=== PATIENT | male | born 1975 | race Caucasian/White ===

== ENCOUNTER 2021-11-19 15:53 | Emergency (ER) | payer OTHER, SELFPAY ==
[2021-11-19 16:07] VITALS: BP 140/85; PULSE 74; RESP 18; TEMP 36.5; O2SAT 98
[2021-11-19 16:10] VITALS: BP 140/85; PULSE 74; RESP 18; TEMP 36.5; O2SAT 98
--- NOTE | 2021-11-19 16:31 | ED.URI ---
HPI - URI/Sore Throat General Chief Complaint: Upper Respiratory Infection Stated Complaint: Ear/Nose/Throat Source: patient and RN notes reviewed Mode of arrival: ambulatory History of Present Illness HPI Narrative: This is a 46-year-old male who presented to urgent care with complaints of left-sided ear pain jaw pain and throat pain. According to patient he developed pain to his left jaw ear 3 days ago. The patient denies SOB, CP, palpitation, extremity numbness, lightheadedness, dizziness, constipation, diarrhea, chills, or fever. Related Data Allergies Allergy/AdvReac Type Severity Reaction Status Date / Time codeine Allergy Unknown Other Unverified 11/19/21 16:10 Review of Systems Review of Systems: A 14 organ system Review of Systems was performed and pertinent positives included in the HPI, otherwise remaining ROS is negative. [facility] Family History Family History Mother Patient's mother is in good health Father Patient's father is in good health Social History Social History Smoking status: Never smoker Alcohol intake: current Exam Narrative: GENERAL: This is a well-nourished, well-developed patient, in no apparent distress. HEAD: normocephalic, atraumatic. EYES: PERRL. Sclera clear/white. Vision is grossly intact. EARS: External ears normal, auditory canals clear and without drainage, TMs normal with perforation and erythematous. Hearing grossly intact. NOSE: External nose normal with no obvious nasal discharge, nares without redness, no rhinorrhea. THROAT: Mucous membranes moist, posterior pharynx edema with erythema. Bilateral enlarged tonsils NECK: Neck supple, non-tender without lymphadenopathy, masses or thyromegaly. CARDIOVASCULAR: Regular rate and rhythm without murmurs, gallops, or rubs. RESPIRATORY: Clear to auscultation. Breath sounds equal bilaterally. No wheezes, rales, or rhonchi. GASTROINTESTINAL: Abdomen soft, non-tender, nondistended. Bowel sounds are active. No hepato-splenomegaly, or palpable masses. No guarding. SKIN: warm, intact with no suspicious lesions or rash, good texture and turgor. NEURO: awake, alert, and oriented to person, place and time. There were no obvious focal neurologic abnormalities. Steady gait EXTREMITIES: Normal range of motion. No edema. No calf tenderness. Negative Homans sign bilaterally. BACK: Nontender without deformity or crepitance. No flank tenderness. Course Course Emergency Course: Patient will be treated for otitis media this is a wellness pharyngitis with Augmentin 875 mg twice daily x 10 days Level of Care: Express Care Visit Vital Signs Vital signs: Vital Signs Temperature 97.7 F 11/19/21 16:07 Pulse Rate 74 11/19/21 16:07 Respiratory Rate 18 11/19/21 16:07 Blood Pressure 140/85 11/19/21 16:07 Pulse Oximetry 98 11/19/21 16:07 Temperature 97.7 F 11/19/21 16:10 Pulse Rate 74 11/19/21 16:10 Respiratory Rate 18 11/19/21 16:10 Blood Pressure 140/85 11/19/21 16:10 Pulse Oximetry 98 11/19/21 16:10 Procedures Ear Wax Removal Left Ear: Ear Wax Removal Date: 11/19/21 Ear Wax Removal Time: 16:35 Cerumenolytic Used: other (Have hydrogen peroxide and water) Results: Re-examined: cerumen removed completely TM Examination: TM(s) perforation Ear Canal Exam: bleeding Noted Patient Tolerated Procedure: well Complications: no problems Technique: ear canal irrigated MDM - URI/Sore Throat Differential Diagnosis Differential diagnosis: Likely upper respiratory infection, otitis media, sinusitis and pharyngitis Discharge Plan Discharge Clinical Impression: Pharyngitis Qualifiers: Pharyngitis/tonsillitis etiology: streptococcus Qualified Code(s): J02.0 - Streptococcal pharyngitis Otitis media Qualifiers: Otitis media type: other nonsuppurative Chroni
== END 2021-11-19 16:40 | disposition home or self-care (01) ==
PROVIDERS: Emergency Provider Nurse Practitioner
DX: J02.0 Streptococcal pharyngitis (principal); H65.192 Other acute nonsuppurative otitis media, left ear; H61.22 Impacted cerumen, left ear
CPT/HCPCS: 69209; 99213; G0463

== ENCOUNTER 2022-08-27 19:14 | Emergency (ER) | payer OTHER, SELFPAY ==
--- NOTE | 2022-08-27 19:19 | ED.URI ---
HPI - URI/Sore Throat General Chief Complaint: Upper Respiratory Infection Stated Complaint: sore throat, cough Time Seen by Provider: 08/27/22 19:22 Source: patient and RN notes reviewed Mode of arrival: ambulatory Limitations: no limitations History of Present Illness HPI Narrative: 47-year-old male presents with concern for cough, sore throat, fatigue. He denies fever, body aches, chills, sweats, nasal congestion, rhinorrhea, shortness of breath. 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 He denies nausea, vomiting, diarrhea MD elicited complaint: cough and sore throat Related Data Allergies Allergy/AdvReac Type Severity Reaction Status Date / Time codeine Allergy Unknown Other Verified 11/25/21 15:03 Review of Systems Review of Systems: CONSTITUTIONAL: Denies malaise, reports fatigue. Chills, sweats, or fever. EYES: Denies visual changes, redness, or discharge. ENT: Denies rhinorrhea, congestion, sinus pain, otalgia. Reports sore throat. CARDIOVASCULAR: Denies chest pain, palpitations, or edema. RESPIRATORY: Reports cough. Denies dyspnea. GASTROINTESTINAL: Denies abdominal pain, nausea, vomiting, diarrhea SKIN: Denies rash or itching. MUSCULOSKELETAL: Reports myalgia. NEUROLOGIC: Denies headache. All systems reviewed & are unremarkable except as noted in HPI and below PMFSH Family History Family History (Reviewed 11/25/21 @ 15:04 by Tamra Contreras [facility]) Mother Patient's mother is in good health Father Patient's father is in good health Social History Social History (Reviewed 11/25/21 @ 15:04 by Tamra Contreras [facility]) Smoking status: Never smoker Alcohol intake: current Comments At time of signature, agree with nursing past medical, surgical, social and family history. There is no relevant family history pertinent to the presenting complaint Exam Narrative: GENERAL: Well-appearing, well-nourished, and in no acute distress. HEAD: Normocephalic EYES: PERRLA, conjunctivae clear ENT: Nares clear. Mucous membranes moist. TM pearly sauer with dull light reflex bilaterally; no tragal tenderness. Oropharynx male erythematous without lesions. Tonsils not enlarged and without exudate, no drooling, no hoarseness, no trismus, uvula midline. NECK: Supple. No lymphadenopathy CHEST: Clear to auscultation, breath sounds equal. No wheezing, rhonchi, rales, or stridor. No respiratory distress, speaks in full sentences. HEART: Regular rate and rhythm. No murmur heard. SKIN: Warm, dry, no rash. NEURO: Alert and oriented x3. PSYCH: Normal mood and affect Course Course Emergency Course: Patient is aware of diagnosis, understands and agrees to treatment plan. Anticipatory guidance given. Patient agrees to follow-up as directed and is aware of reasons to seek care at the emergency department. Portions of this record may have been created with voice recognition software Level of Care: Express Care Visit Vital Signs Vital signs: Reviewed. MDM - URI/Sore Throat MDM Narrative Medical decision making narrative: Differential diagnosis considered: Amaro virus, strep pharyngitis, allergic rhinitis, upper respiratory tract infection, sinusitis, rhinosinusitis, nasopharyngitis. viral pharyngitis, otitis media, otitis externa, pneumonia, bronchitis, viral cough syndrome, viral syndrome, and influenza. Exam findings show no acute concerns or changes; patient is non-toxic appearing and is in no distress. Patient is appropriate for outpatient treatment and follow-up. Lab Data Attestation: I reviewed the patient's lab results. Critical Care Time Critical Care Time Critical Care Time: No Discharge Plan Discharge Clinical Impression: Pharyngitis Patient Disposition: Home, Self-Care Condition: Stable Instructions: Pharyngitis (ED) Additional Instructions: Your rapid strep swab was negative today at [facility]. A throat culture will be sent to the laboratory for further testing. If the test is positive, you will r
[2022-08-27 19:25] VITALS: BP 136/90; PULSE 73; RESP 16; TEMP 36.9; O2SAT 99
== END 2022-08-27 19:39 | disposition home or self-care (01) ==
PROVIDERS: Emergency Provider Nurse Practitioner; PCP Internal Medicine
DX: J02.9 Acute pharyngitis, unspecified (principal)
CPT/HCPCS: 87081; 87880; 99213; G0463

== ENCOUNTER 2023-03-14 12:52 | Emergency (ER) | payer OTHER, SELFPAY ==
--- NOTE | ~2023-03-14 | CT_ITS ---
EXAMINATION: CT abdomen pelvis w con DATE: 03/14/2023 15:18 INDICATION: Right lower quadrant pain TECHNIQUE: Computed tomography (CT) of the abdomen and pelvis was performed with 100 cc Omnipaque 350 intravenous contrast. The dose-length product was 442.61 mGy-cm. Automated exposure control and iter ative reconstruction technique were employed. COMPARISON: None. FINDINGS: Lung bases are unremarkable. Heart size normal. No significant pleural or pericardial effus ion. Fatty infiltration of the liver. The spleen contains calcified granulomas. The pancreas, adrenal glands and kidneys are unremarkable. The appendix is thickened measuring 8 mm, although there is no significant surrounding inflammatory change. Small fat-containing umbilical hernia. Bladder wall is m ildly thickened. Nonobstructive bowel gas pattern. No abnormal pelvic masses or fluid collections. No significant vascular abnormality. No lymphadenopathy. No acute osseous abnormality. IMPRESSION: 1. Mildly thickened appendix without significant surrounding inflammatory change, indeterminate for a ppendicitis. 2: Bladder wall thickening, nonspecific. Cannot exclude cystitis. Clinically correlate. Reviewed, dictated and finalized at location B. IMPRESSION: 1. Mildly thickened appendix without significant surrounding inflammatory beck e, indeterminate for appendicitis. 2: Bladder wall thickening, nonspecific. Cannot exclude cystitis. Clinically harley burris.
[2023-03-14 13:09] VITALS: BP 126/87; PULSE 66; RESP 20; TEMP 36.4; O2SAT 100
[2023-03-14 13:22] LABS: Basophils Absolute Auto 0.1 K/mm3 (0.0-0.1); Basophils Percent Auto 1.6 % (0.2-1.2); Eosinophils Absolute Auto 0.1 K/mm3 (0-0.3); Eosinophils Percent Auto 1.2 % (0-4.4); Hematocrit 43.3 % (42.0-52.0); Hemoglobin 14.9 g/dL (14.0-18.0); Immature Granulocyte Absolute 0.01 K/mm3 (0.00-0.031); Immature Granulocyte Percent A 0.2 % (0-0.5); Lymphocytes Absolute Auto 1.78 K/mm3 (0.9-3.2); Lymphocytes Percent Auto 27.6 % (18.3-44.2); Mean Corpuscular HGB Conc 34.4 g/dl (32-36); Mean Corpuscular Hemoglobin 30.2 pg (26-34); Mean Corpuscular Volume 87.8 fl (80-100); Mean Platelet Volume 8.9 fl (7.4-10.4); Monocytes Absolute Auto 0.4 K/mm3 (0.1-0.6); Monocytes Percent Auto 6.2 % (2.6-8.5); Neutrophils Absolute Auto 4.1 K/mm3 (1.3-6.7); Neutrophils Percent Auto 63.2 % (45.5-73.1); Platelet Count Result 367 k/mm3 (150-375); Red Blood Count 4.93 M/mm3 (4.6-6.20); Red Cell Distribution Width 12.1 % (11.5-14.5); White Blood Count 6.4 K/mm3 (4.5-10.0)
[2023-03-14 13:30] LABS: Alanine Aminotransferase 57 U/L (6-50); Albumin Level 4.8 g/dL (3.5-5.1); Alkaline Phosphatase 76 U/L (38-126); Anion Gap 8 mmol/L (8-16); Aspartate Amino Transferase 43 U/L (17-59); Bilirubin,Total 0.9 mg/dL (0.2-1.3); Blood Urea Nitrogen 12 mg/dL (9-20); Calcium 9.5 mg/dL (8.4-10.2); Carbon Dioxide 28 mmol/L (22-30); Chloride 100 mmol/L (98-107); Estimated CRCL calculation 122 ml/min; Estimated Glomerular Filt Rate > 60; Glucose 130 mg/dL (65-110); Lipase 99 U/L (23-300); Sodium 136 mmol/L (137-145)
--- NOTE | 2023-03-14 14:00 | ED.ABDPAIN ---
HPI - Abdominal Pain General Chief Complaint: Abdominal Pain Stated Complaint: RLQ pain Time Seen by Provider: 03/14/23 13:32 History of Present Illness HPI narrative: Patient is a 47-year-old male who presents ER with right lower quadrant/mid abdominal pain. Began earlier this morning around 4:30 AM. Has been constant and waxes and wanes in intensity. No radiation. No urinary frequency urgency or dysuria. He feels slightly bloated but not constipated. No belching. No history of previous abdominal surgery. No pain with hitting speed bumps Related Data Allergies Allergy/AdvReac Type Severity Reaction Status Date / Time codeine Allergy Unknown Other Verified 03/14/23 13:31 Review of Systems Review of Systems: All systems reviewed & are unremarkable except as noted in HPI and below Constitutional: Constitutional: Denies chills, Denies fatigue and Denies fever(s) Gastrointestinal: Gastrointestinal: Reports abdominal pain, Reports bloating, Denies constipation, Denies diarrhea, Denies nausea and Denies vomiting Genitourinary: Genitourinary: Denies dysuria, Denies testicular pain and Denies urinary frequency PMFSH Past Medical History Medical History (Updated 03/14/23 @ 16:24 by Bogdan Quick MD) Healthy adult male Surgical History Surgical History (Updated 03/14/23 @ 14:01 by Bogdan Quick MD) No history of previous surgery Family History Family History Mother Patient's mother is in good health Father Patient's father is in good health Social History Social History Smoking status: Never smoker Alcohol intake: current Exam Narrative: GENERAL: Well-appearing, well-nourished, and in no acute distress. HEAD: Normocephalic, atraumatic. ENT: Mucous membranes moist. CHEST: Clear to auscultation. No respiratory distress. HEART: Regular rate and rhythm. Normal peripheral pulses. ABDOMEN: Soft, uncomfortable with palpation of the right lower quadrant without guarding, nondistended,. EXTREMITIES: Normal range of motion. No edema. SKIN: Warm, dry, no rash. NEURO: Alert and oriented x3. PSYCH: Normal mood and affect. Course Course Emergency Course: Patient still with some mild discomfort. No guarding. Discussed imaging and lab results. Patient has been seen by the surgeon. He was given the options of surgery, admission overnight to see if pain worsens or improves, or discharge home. Patient prefers to be discharged home with oral antibiotics to try outpatient regimen as he has a golf treatment he would like to be able to plan this weekend and surgery would not allow that. Patient has been educated on return precautions and has verbalized understanding. Vital Signs Vital signs: Vital Signs Temperature 97.5 F L 03/14/23 13:09 Pulse Rate 66 03/14/23 13:09 Respiratory Rate 20 03/14/23 13:09 Blood Pressure 126/87 03/14/23 13:09 Pulse Oximetry 100 03/14/23 13:09 Temperature 97.5 F L 03/14/23 13:09 Pulse Rate 66 03/14/23 13:09 Respiratory Rate 20 03/14/23 13:09 Blood Pressure 126/87 03/14/23 13:09 Pulse Oximetry 100 03/14/23 13:09 MDM - Abdominal Pain Lab Data 03/14/23 13:11 03/14/23 13:11 Labs: Lab Results 03/14/23 03/14/23 Range/Units 13:11 14:15 WBC 6.4 (4.5-10.0) K/mm3 RBC 4.93 (4.6-6.20) M/mm3 Hgb 14.9 (14.0-18.0) g/dL Hct 43.3 (42.0-52.0) % MCV 87.8 (80-100) fl MCH 30.2 (26-34) pg MCHC 34.4 (32-36) g/dl RDW 12.1 (11.5-14.5) % Plt Count 367 (150-375) k/mm3 MPV 8.9 (7.4-10.4) fl Immature Gran % (Auto) 0.2 (0-0.5) % Neut % (Auto) 63.2 (45.5-73.1) % Lymph % (Auto) 27.6 (18.3-44.2) % [place] % (Auto) 6.2 (2.6-8.5) % Eos % (Auto) 1.2 (0-4.4) % Baso % (Auto) 1.6 H (0.2-1.2) % Lymph # (Auto) 1.78 (0.9-3.2) K/mm3 [place] # (Auto
[2023-03-14 14:32] LABS: Appearance Urine Clear (Clear); Bilirubin Urine Negative (Negative); Blood Urine Negative (Negative); Color Urine Yellow (Yellow); Glucose Urine UA Negative (Negative); Ketones Urine Negative (Negative); Leukocyte Esterase Ur Negative LEU/UL (Negative); Nitrate Urine Negative (Negative); Protein Urine Negative (Negative); Urobilinogen Urine 0.2 mg/dL (<2.0); pH Urine 6.5 (5.0-9.0)
[2023-03-14 14:37] LABS: Add Urine Microscopic? NO
--- NOTE | 2023-03-14 16:39 | PM.CNGS ---
Assessment and Plan Assessment and plan (1) Right lower quadrant abdominal pain: Code(s): R10.31 - Right lower quadrant pain Status: Acute Assessment and Plan: exam largely benign at this time, CT and workup equivocal for early appendicitis, d/w pt at length including conservative mgmt vs surgery, pt would like to proceed c conservative mgmt c po abx, analgesia, pt advised to return if symptoms worsen History of Present Illness Consult details Consult date: 03/14/23 Reason for consult: abdominal pain Requesting physician: Bogdan Quick MD Narrative: The patient is a 47-year-old male presenting to the emergency department complaining of right mid to right lower quadrant abdominal pain. Patient reports the pain started acutely at 4:30 a.m. this morning. The patient reports the pain is intermittent and comes in waves. The patient reports most severe intensity is about a 7/10 and is sharp, stabbing. The patient reports that he has had similar episodes in the past, however not as severe or long-lasting. The patient does report decreased appetite and bloating. Currently, the patient reports that the pain has largely resolved. Review of Systems Constitutional: Constitutional: Reports as per HPI, Denies anorexia, Denies chills, Denies fatigue, Denies fever(s), Denies increased appetite, Denies lethargy, Denies malaise, Reports poor appetite, Denies weakness, Denies weight gain and Denies weight loss Eyes: Eyes: Reports as per HPI ENT: Reports system reviewed and no additional complaints, except as documented Cardiovascular: Cardiovascular: Reports no additional cardiovascular complaints Respiratory: Respiratory: Reports no additional respiratory complaints Gastrointestinal: Gastrointestinal: Reports as per HPI, Reports abdominal pain, Reports bloating, Denies change in stool character, Reports GI cramping, Denies nausea and Denies vomiting Genitourinary: Genitourinary: Reports no additional male genitourinary complaints Musculoskeletal: Musculoskeletal: Reports no additional musculoskeletal complaints Integumentary/Breasts: Skin/Breast: Reports system reviewed and no additional complaints, except as docu Neurologic: Reports system reviewed and no additional complaints, except as documented Psychiatric: Psychiatric: Reports no additional psychiatric complaints Endocrine: Endocrine: Reports no additional endocrine complaints Hematologic/Lymphatic: Hematologic/Lymphatic: Reports no additional hematologic/lymphatic complaints Allergic/Immunologic: Allergic/Immunologic: Reports no additional allergic/immunologic complaints [facility] Past Medical History Medical History Healthy adult male Surgical History Surgical History No history of previous surgery Family History Family History Mother Patient's mother is in good health Father Patient's father is in good health Social History Social History Smoking status: Never smoker Alcohol intake: current Meds Home Medications and Allergies Home Medications Medication Instructions Recorded Confirmed Type lidocaine HCl 2 % mucosal solution 5 ml mucous membrane QID PRN pain 08/27/22 Rx (Lidocaine Viscous) #100 mL methylprednisolone 4 mg tablets in See Rx Instructions PO .COMPLEX 08/27/22 Rx a dose pack (Medrol (Altaf)) #21 ea amoxicillin 875 mg-potassium 1 tablet PO Q12H #20 tabs 03/14/23 Rx clavulanate 125 mg tablet hydrocodone 5 mg-acetaminophen 325 1 tablet PO Q6H PRN pain #12 tabs 03/14/23 Rx mg tablet Allergies Allergy/AdvReac Type Severity Reaction Status Date / Time codeine Allergy Unknown Other Verified 03/14/23 13:31 Vital Signs Vital Signs - 24 hr 03/14/23 13:09 Temperature 36.4 C L Pulse Rate 66
== END 2023-03-14 16:30 | disposition home or self-care (01) ==
PROVIDERS: Emergency Provider Emergency Medicine; PCP Internal Medicine
DX: R10.31 Right lower quadrant pain (principal)
CPT/HCPCS: 36415; 74177; 80053; 81003; 83690; 85025; 99284; Q9967

== ENCOUNTER 2023-07-27 16:16 | Emergency (ER) | payer OTHER, SELFPAY ==
[2023-07-27 16:33] VITALS: BP 125/83; PULSE 63; RESP 16; TEMP 36.6; O2SAT 99
--- NOTE | 2023-07-27 17:07 | ED.URI ---
HPI - URI/Sore Throat General Chief Complaint: Upper Respiratory Infection Stated Complaint: SORE THROAT Time Seen by Provider: 07/27/23 17:02 Source: patient and RN notes reviewed Mode of arrival: ambulatory Limitations: no limitations History of Present Illness HPI Narrative: Patient presents today complaining fatigue and sore throat since yesterday. Denies fever, cough, congestion, rhinorrhea. 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 He has been taking ibuprofen and NyQuil with mild relief. Related Data Home Medications Medication Instructions Recorded Confirmed No Home Medications 07/27/23 07/27/23 Allergies Allergy/AdvReac Type Severity Reaction Status Date / Time codeine Allergy Unknown Other Verified 07/27/23 16:28 Review of Systems Review of Systems: CONSTITUTIONAL: Denies body aches, fever, chills, or sweats.+ fatigue EYES: Denies visual changes, redness, or discharge. ENT: Denies rhinorrhea, congestion, or otalgia.+ sore throat CARDIOVASCULAR: Denies chest pain, palpitations, or edema. RESPIRATORY: Denies cough or dyspnea. GASTROINTESTINAL: Denies abdominal pain, nausea, vomiting, or diarrhea. GENITOURINARY: Denies dysuria or hematuria. SKIN: Denies rash, itching, or wounds. MUSCULOSKELETAL: Denies back pain, joint pain, or myalgia. NEUROLOGIC: Denies headache, numbness, tingling, or weakness. PSYCH: Denies depression or anxiety. [facility] Past Medical History Medical History Healthy adult male Surgical History Surgical History No history of previous surgery Family History Family History Mother Patient's mother is in good health Father Patient's father is in good health Social History Social History Smoking status: Never smoker Alcohol intake: current Comments At time of signature, I have reviewed and agree with nursing past medical, surgical, social and family history unless otherwise noted. Please see nursing chart for further information. There is no relevant family history pertinent to the presenting complaint Exam Narrative: GENERAL: Well-appearing, well-nourished, and in no acute distress. HEAD: Normocephalic, atraumatic. EYES: EOMI. No redness or drainage. Conjunctivae normal. ENT: Mucous membranes pink and moist. Nares clear. No rhinorrhea. TMs normal bilaterally. Throat normal. Uvula midline. NECK: Normal AROM. Supple. No lymphadenopathy. CHEST: No respiratory distress. Clear to auscultation. HEART: Regular rate and rhythm. No murmur appreciated. Normal peripheral pulses. EXTREMITIES: Normal range of motion. No edema. SKIN: Warm, dry, no rash. Capillary refill normal. Normal skin turgor. NEURO: No focal deficits. Alert and oriented x3. Gait steady. PSYCH: Normal affect. No signs of depression or anxiety. Course Course Level of Care: Express Care Visit Vital Signs Vital signs: Vital Signs Temperature 98 F 07/27/23 16:33 Pulse Rate 63 07/27/23 16:33 Respiratory Rate 16 07/27/23 16:33 Blood Pressure 125/83 07/27/23 16:33 Pulse Oximetry 99 07/27/23 16:33 Temperature 98 F 07/27/23 16:33 Pulse Rate 63 07/27/23 16:33 Respiratory Rate 16 07/27/23 16:33 Blood Pressure 125/83 07/27/23 16:33 Pulse Oximetry 99 07/27/23 16:33 Reviewed. Pt has been instructed to follow up with his PCP regarding his elevated blood pressure today. MDM - URI/Sore Throat MDM Narrative Medical decision making narrative: COVID-19 negative. Rapid strep screen negative. Culture pending. Symptoms likely viral in etiology. No prescription medications indicated at this time. Jose richardson
== END 2023-07-27 17:48 | disposition home or self-care (01) ==
PROVIDERS: Emergency Provider Nurse Practitioner
DX: B34.9 Viral infection, unspecified (principal); Z20.822 Contact with and (suspected) exposure to COVID-19
CPT/HCPCS: 87081; 87426; 87880; 99213; C9803; G0463

== ENCOUNTER 2025-04-15 07:22 | Day surgery (SDC) | payer OTHER, SELFPAY ==
[2025-01-23 12:13] VITALS: BMI 25.4
[2025-03-28 14:13] VITALS: BMI 25.8
--- OUTSIDE RECORDS SUMMARY | 2025-04-15 07:31 | XMS_ITS | Clinical Summary ---
Author Organization [facility] Address [address] [place] [address] Care Team Providers Care Cane Stripper Name Role Phone Unavailable Primary Care Provider Unavailabl e Source Comments [facility],non-owned Affiliates and Associated Physician Practices is amultiple site organization consisting of ambulatory clinics and hospital sitesin [place], [place], [place] and [place]. This disclosure is being madepursuant to the Care Everywhere program and may not contain all information available regarding this patient. Last updated 18.[facility] Super Derivatives Allergies Active Allergy Reactions Criticality Noted Date Comments Codeine 11/13/2016 Medications * Be aware that medications may not be up to date on this document. Alwaysverify current medications with the patient. No known medications Social History Tobacco Use Types Packs/Day Years Used Date Smoking Tobacco: Never Smokeless Tobacco: Former Sex and Gender Information Value Date Recorded Sex Assigned at Not on file Legal Sex Male 8:27 AM [employer] Gender Identity Not on file Sexual Orientation Not on file Last Filed Vital Signs Vital Sign Reading Time Taken Comments Blood Pressure 118/80 03/18/2019 2:20 PM CDT Pulse 78 03/18/2019 2:20 PM CDT Temperature 36.9 C (98.4 F) 03/18/2019 2:20 PM CDT Respiratory Rate 16 03/18/2019 2:20 PM CDT Oxygen Saturation 96% 03/18/2019 2:20 PM CDT Inhaled Oxygen Concentration - - Weight 88.5 kg (195 lb) 03/18/2019 2:20 PM CDT Height 180.3 cm (5' 11) 03/18/2019 2:20 PM CDT Body Mass Index 27.2 03/18/2019 2:20 PM CDT Plan of Treatment Health Maintenance Due Date Last Done Comments COLOGUARD (AGES 45-75) - COL ON CA SCREENING 1975 COLON MONITORING 1975 COLONOSCOPY - COLON CA SCREENING 1977 CT COLONOGRAPHY - COLON CA SCREENING 1975 Colorectal Cancer Screening 1975 FIT - COLON CA SCREENING 1975 FLEX SIG - COLON CA SCREENING 1975 LIPID TESTING 1975 HIV SCREENING 1992 HEPATITIS C SCREENING 03/11/1995 DTAP/TDAP/TD VACCINES (1 - Tdap) 1996 HEPATITIS B VACCINE (1 of 3 - 19+ 3-dose series) 1996 SCREENING FOR DIABETES 06/22/2018 COVID-19 VACCINE (1 - 2023-2 5 season) 2024 DEPRESSION SCREENING 10/31/2024 INFLUENZA VACCINE (Season Ended) 2025 ZOSTER VACCINE (1 of 2) 2027 HIB VACCINE Aged Out No longer eligi ble based on patient's age to complete this topic HPV VACCINE Aged Out No longer eligi ble based on patient's age to complete this topic MENINGOCOCCAL (Group B) VACC INE SHARED DECISION-MAKING Aged Out No longer eligibl e based on patient's age to complete this topic MENINGOCOCCAL GROUPS A/C/Y/W VACCINE Aged Out No longer eligible b ased on patient's age to complete this topic PNEUMOCOCCAL VACCINE Aged Out No long er eligible based on patient's age to complete [place] [id number]
--- OUTSIDE RECORDS SUMMARY | 2025-04-15 07:31 | XMS_ITS | Encounter Summary ---
Author Organization [facility] Address 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
--- OUTSIDE RECORDS SUMMARY | 2025-04-15 07:31 | XMS_ITS | Clinical Summary ---
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
[2025-04-15 07:47] VITALS: BMI 25.2
--- NOTE | 2025-04-15 08:31 | P.PNAN_ITS ---
Anes - Eval Pre Procedure Procedure: Operation Date: 04/15/25 09:00 Proposed Procedures p Screening Colonoscopy - Rocael Yadav MD Date/Time: 04/15/25 08:31 Surgeon: Vicenta Pre Op Diagnosis: Screening Neoplasm of the Colon Patient Data Age: 50 Gender: M Height: 1.8 m Weight: 82.1 kg Allergies Allergy/AdvReac Type Severity Reaction Status Date / Time codeine Allergy Unknown Other Verified 04/15/25 07:37 Home Medications ?Medication ?Instructions ?Recorded ?Confirmed ?Type multivitamin 1 tablet PO DAILY 12/14/23 04/15/25 History Patient hx anesthesia problems: none Family hx anesthesia problems: none Results Review: All pre-operative results and documents have been reviewed as part of the pre- operative evaluation. [facility] Past Medical History Medical History BMI 25.0-25.9,adult Mixed hyperlipidemia Elevated ALT measurement Bilateral impacted cerumen Surgical History Surgical History No history of previous surgery Family History Family History Mother Hyperlipidemia Father Patient's father is in good health Sibling Hyperlipidemia Social History Social History Smoking status: Never smoker Second hand tobacco smoke exposure: No Alcohol intake: current Alcohol use details: social Substance use: never Substance use type: does not use Do You Feel Safe in your Home?: Yes Lack of Transportation: No Lack of Food: Never True Current Housing: I Have Housing Concerned About Future Housing: No Difficulty Paying Gas/Electric Bills: No Difficulty Paying for Meds: No Currently Unemployed: No Education: Bachelor's Degree Difficulty w/ Childcare or Family Care: No Living arrangements: with family Occupation/Education: occupation Additional occupation/education comments: Works as a teacher [employer] Gender identity (if verbalized by the patient): Male Sexual Orientation (if Verbalized by the Patient): Straight or Heterosexual Exam Day of Procedure 04/15/25 08:31 Heart: regular rate and rhythm Lungs: clear to auscultation Airway: Mallampati scale class II Neurological: alert and oriented Risks: Discussed risks of MAC anesthesia. Pt. accepts risks discussed.
--- NOTE | 2025-04-15 09:07 | PM.IMHP ---
H&P: HPI History of Present Illness Date/Time: 04/15/25 09:07 Chief Complaint: Screening colonoscopy Narrative: This is the patient's first colonoscopy. There are no GI symptoms and there is no family history of colorectal cancer. Review of Systems Review of Systems: All systems reviewed & are unremarkable except as noted in HPI and below PMFSH Past Medical History Medical History BMI 25.0-25.9,adult Mixed hyperlipidemia Elevated ALT measurement Bilateral impacted cerumen Surgical History Surgical History No history of previous surgery Family History Family History Mother Hyperlipidemia Father Patient's father is in good health Sibling Hyperlipidemia Social History Social History Smoking status: Never smoker Second hand tobacco smoke exposure: No Alcohol intake: current Alcohol use details: social Substance use: never Substance use type: does not use Do You Feel Safe in your Home?: Yes Lack of Transportation: No Lack of Food: Never True Current Housing: I Have Housing Concerned About Future Housing: No Difficulty Paying Gas/Electric Bills: No Difficulty Paying for Meds: No Currently Unemployed: No Education: Bachelor's Degree Difficulty w/ Childcare or Family Care: No Living arrangements: with family Occupation/Education: occupation 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 (if verbalized by the patient): Male Sexual Orientation (if Verbalized by the Patient): Straight or Heterosexual Meds Home Medications and Allergies Home Medications ?Medication ?Instructions ?Recorded ?Confirmed ?Type multivitamin 1 tablet PO DAILY 12/14/23 04/15/25 History Allergies Allergy/AdvReac Type Severity Reaction Status Date / Time codeine Allergy Unknown Other Verified 04/15/25 07:37 Exam Const: General: cooperative and healthy appearing Resp: Effort & Inspection: normal respiratory effort and able to speak in complete sentences Auscultation: clear to auscultation bilaterally Cardio: Rate: regular rate Rhythm: regular rhythm GI: Inspection: normal to inspection GI Palp: No No hepatosplenomegaly present Auscultation: normal bowel sounds Rectal Exam: deferred Skin: General skin exam: normal color Psych: Appearance: grossly normal Mental Status: mental status grossly normal Assessment and Plan Assessment and plan (1) Encounter for screening colonoscopy: Code(s): Z12.11 - Encounter for screening for malignant neoplasm of colon Status: Acute Assessment and Plan: The patient is deemed a good candidate for the procedure. Consent signed. Will proceed.
[2025-04-15 09:12] VITALS: BP 127/86; PULSE 53; RESP 15; TEMP 36.2; O2SAT 99
[2025-04-15] MEDS: LACTATED RINGERS 1,000 ML 150 ML IV CONT (09:14)
[2025-04-15 09:41] VITALS: BP 98/59; PULSE 65; RESP 17; O2SAT 98
--- NOTE | 2025-04-15 09:49 | WPDANESPN ---
Anes - Prog Note Post-Op Date/Time: 04/15/25 09:49 Vital Signs: Last Vital Signs Temp 97.1 F L 04/15/25 09:12 Pulse 53 L 04/15/25 09:12 Resp 15 04/15/25 09:12 BP 127/86 04/15/25 09:12 Pulse Ox 99 04/15/25 09:12 Pain Score (VAS): no pain I/O: Intake & Output 04/14/25 04/15/25 04/15/25 23:59 07:59 15:59 Intake Total 250 Balance 250 Patient Feedback: Patient satisfied with anesthetic care.
[2025-04-15 09:51] VITALS: BP 98/66; PULSE 55; RESP 17; O2SAT 100
[2025-04-15 10:01] VITALS: BP 102/74; PULSE 63; RESP 16; O2SAT 100
== END 2025-04-15 10:07 | disposition home or self-care (01) ==
PROVIDERS: PCP Nurse Practitioner; Visit Provider Internal Medicine Gastroenterology
PROC: 0DJD8ZZ Inspection of Lower Intestinal Tract, Via Natural or Artificial Opening Endoscopic (ICD-10-PCS; CPT 45378; principal; 2025-04-15 09:00)
DX: Z12.11 Encounter for screening for malignant neoplasm of colon (principal); K63.5 Polyp of colon
CPT/HCPCS: 45385

== ENCOUNTER 2025-04-15 08:07 | Outpatient (NON) | payer OTHER, SELFPAY ==
--- NOTE | 2025-04-15 | S_PTH ---
PATIENT: Edward Boggs LOC: [facility] U#:[id number] AGE/SX: 50/M ROOM: RE04/15/[address]: Rocael Yadav MD : 1975 BED: DIS: 04/15/2025 SPEC #: [id number] RECD: 04/16/25 09:30 STATUS: TRISTAN REQ #: [id number] KALANI: 04/15/25 00:[address]: Rocael Yadav DEPT: [facility] Surgical RECD BY: Lucy Leal ENTERED: 04/16/25 09:31 SP TYPE: Surgical OTHR DR: Joselito Dawson APRN Tissues: A - Colon Polypectomy Procedures: Hematoxylin and Eosin Stain Gross and Microscopic Level 4
--- OUTSIDE RECORDS SUMMARY | 2025-04-16 08:15 | XMS_ITS | Clinical Summary ---
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
--- OUTSIDE RECORDS SUMMARY | 2025-04-16 08:15 | XMS_ITS | Clinical Summary ---
Author Organization [facility] Address [address] [place] [address] Care Team Providers Care Animal Ride Manager Name Role Phone Unavailable Primary Care Provider Unavailabl e Source Comments [facility],non-owned Affiliates and Associated Physician Practices is amultiple site organization consisting of ambulatory clinics and hospital sitesin [place], [place], [place] and [place]. This disclosure is being madepursuant to the Care Everywhere program and may not contain all information available regarding this patient. 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
--- OUTSIDE RECORDS SUMMARY | 2025-04-16 08:15 | XMS_ITS | Encounter Summary ---
Author Organization [facility] Address 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
== END 2025-04-15 08:08 | disposition home or self-care (01) ==
PROVIDERS: PCP Nurse Practitioner; Visit Provider Internal Medicine Gastroenterology
DX: Z12.11 Encounter for screening for malignant neoplasm of colon (principal); K63.5 Polyp of colon
CPT/HCPCS: 88305